=== PATIENT | female | born 1980 | race Caucasian/White ===

== ENCOUNTER 2018-08-27 08:49 | Observation (INO) ==
--- NOTE | 2018-08-27 07:58 | P.OP ---
- Preoperative Diagnosis (1) Excessive and frequent menstruation with regular cycle (2) Intramural leiomyoma of uterus (3) Endometriosis of uterus (4) Secondary dysmenorrhea - Postoperative Diagnosis (1) Excessive and frequent menstruation with regular cycle (2) Intramural leiomyoma of uterus (3) Endometriosis of uterus (4) Secondary dysmenorrhea (5) Right ovarian cyst Date of procedure: 08/27/18 Procedure: 1. LAPAROSCOPIC SUPRACERVICAL HYSTERECTOMY 2. BILATERAL SALPINGECTOMY 2. RIGHT CYSTECTOMY Anesthesia: GETA Surgeon: Barb Yates MD Machine Assembler Supervisor: OR Staff Estimated blood loss (mL): 150 IV fluids (mL): 1,100 (+ IV antibiotics given prior to surgery + Methylene blue) Urine output (mL): 200 Pathology: other (uterus, fallopian tubes, R ovarian cyst) Operation and Findings: Findings: 1. enlarged uterus 2. multiple pelvic adhesions 3. right ovarian cyst Complications: none Condition: stable Disposition: PACU Descriptions of the procedure: I discussed the risks, benefits and alternatives of the procedure with the patient. Informed consent was obtained after questions were answered. She was then taken to the operating room with her IV running. She was placed in the supine position and was given general anesthesia without difficulties or complications. IV antibiotics were given prior to surgery. She was then placed in the dorsal lithotomy position and was prepped and draped in the usual sterile fashion. Attention was first turned to the patient's genital area. A bivalved speculum was introduced inside the patient's vagina. The anterior aspect of the cervix was grasped with a single tooth tenaculum for manipulation. The cervix was carefully dilated and electrocauterized with the Bovie. A uterine manipulator was carefully introduced inside her uterus. The rest of the instruments were removed from the patient's vagina. A sterile blue towel was used to cover the perineum. The surgeon changed gloves and attention was then turned to the patient's abdomen. A vertical umbilical incision was made with the scalpel. A 5 mm trocar was introduced inside the patient's abdomen under direct visualization. A pneumo -peritoneum was created with CO2 gas. Two 5 mm trocars and one 10 mm trocar were introduced inside the patient's abdomen under direct visualization in the lower right, left and mid abdomen. A survey of the patient's abdomen revealed normal anatomy. A survey of the patient's pelvis revealed the findings noted above. Extensive lysis of adhesions was needed in order to return anatomy to normal (thick fibrous adhesions involved the right cornua and the abdominal wall ). The fallopian tubes were carefully grasped, electrocauterized and transected with the Harmonic scalpel. The round ligaments and the utero-ovarian ligaments were carefully and serially grasped, electrocauterized and cut with the Harmonic scalpel. Excellent hemostasis was noted. Methylene blue dye was given to patient. With some degree of difficulty, the tissues along the uterus on both sides were serially grasped, electrocauterized and transected with the Harmonic scalpel. The ureters were noted to be away from the surgical site. The uterine vessels were skeletonized, electrocauterized and transected with the Harmonic scalpel. Good hemostasis was noted. Next, the bladder flap was created and the bladder was dissected off the lower uterine segment. Excellent hemostasis was noted. The uterine manipulator was removed. The Harmonic scalpel was used to electrocauterized and cut the cervix at the cervico-uterine junction. Good hemostasis was noted. The Kleppinger was used to electrocauterize the endocervix. The morcellator was introduced inside the abdomen under direct visualization and was used to cut the uterus. The tissues were carefully removed and sent to Pathology. The surgical sites were noted to be hemostatic. Copious irrigation was done. Care was taken to ensure the removal of all small pieces of tissue which were left in the abdomen and pelvis after morcellation. Methylene blue dye was given at the beginning of the surgical procedure. The ureters were identified again and were found to be away from the surgical sites. There was no evidence of injury or blockage of the ureters or bladder. Otmas and Intercede were placed over the cervix and ovaries. All of the instruments were removed from the patient's abdomen. The ports were also removed under direct visualization. Excellent hemostasis was noted. The CO2 gas was carefully expressed out of the patient's abdomen. The 10 mm fascial incision was reapproximated with a figure eight stitch of 0-Vicryl. The skin incisions were injected with 0.5 % Marcaine and were reapproximated with subcutaneous stitches of 4-0 Vicryl. Mastisol and steri strips were placed over the incisions. The patient tolerated the procedure well. She was successfully extubated and transferred to PACU in stable condition. Note: I discussed surgical procedures and surgical findings with patient's over the phone. His questions were answered. He verbalized understanding.
[2018-08-27] MEDS ORDERED: Sodium Chlor 0.9% Inj 500 ML IV.CONT PRN (09:30)
[2018-08-27] MEDS ORDERED: Metoprolol Tartrate 25 MG Tablet PO SCH (09:45)
[2018-08-27] MEDS ORDERED: Chlorhexidine Gluconate 2% 1 Pack (2 Cloths) TOPICAL SCH (09:45)
[2018-08-27] MEDS ORDERED: Clindamycin 900 mg/NS Premix 900 MG/50 ML PIGGYBACK IV.SIG SCH (10:00)
[2018-08-27] MEDS ORDERED: Bupivacaine/Epinephrine 0.5% Inj 50 ML Vial ONE (10:04)
[2018-08-27] MEDS ORDERED: Fluorescein Sod 10% Inj 500 MG/5 ML Ampul IV.PUSH ONE (10:05)
[2018-08-27] MEDS ORDERED: Lidocaine PF 1% Inj 5 ML Syringe OTHER ONE (10:35)
[2018-08-27] MEDS ORDERED: Glycopyrrolate Inj 1 MG/5 ML Syringe IV.PUSH ONE (10:35)
[2018-08-27] MEDS ORDERED: Neostigmine Inj 5 MG/5 ML Syringe IV.PUSH ONE (10:35)
[2018-08-27] MEDS ORDERED: Ketorolac Inj 30 MG/ML (IVP) Vial IV.PUSH ONE (10:35)
[2018-08-27] MEDS ORDERED: Clindamycin Inj 900 MG/6 ML Vial ONE (10:40)
[2018-08-27] MEDS ORDERED: Ibuprofen 600 MG Tablet PO PRN (13:03)
[2018-08-27] MEDS ORDERED: LORazepam 0.5 MG Tablet PO PRN (13:03)
[2018-08-27] MEDS ORDERED: Zolpidem Tartrate 5 MG Tablet PO PRN (13:03)
[2018-08-27] MEDS ORDERED: *Meperidine Inj 25 MG/ML Vial PERIprocedural Use ONLY ONE (13:33)
[2018-08-27] MEDS ORDERED: fentaNYL Citrate Inj 100 MCG/2 ML Ampul ONE (13:33)
--- NOTE | 2018-08-27 14:28 | ECG ---
Date Performed: 08/27/2018 Time Performed: 09:37:21 PTAGE: 38 years EKG: Sinus rhythm LOW QRS VOLTAGE IN PRECORDIAL LEADS INCOMPLETE RIGHT BUNDLE BRANCH BLOCK BORDERLINE ECG NO PREVIOUS TRACING DOCTOR: Miranda Gonzalez Interpretating Date/Time 08/27/2018 14:27:03
[2018-08-27 15:20] VITALS: BP 115/68; PULSE 89; RESP 16; TEMP 98.4; O2SAT 98
[2018-08-27] MEDS ORDERED: Docusate Sodium 100 MG Capsule PO SCH (21:00)
== END 2018-08-27 16:00 | disposition home or self-care (01) ==
LOC: HSDI 08:49 → HSDC 08:49
PROVIDERS: ADMIT Obstetrics & Gynecology; ATTEND Obstetrics & Gynecology
PROC: LAPLASH (ICD-10-PCS; 2018-08-27 10:35)